=== PATIENT | male | born 1935 | race Caucasian/White ===

== ENCOUNTER → 2019-04-11 | Outpatient (CLI) | payer OTHER ==
--- NOTE | 2019-04-11 10:21 | MR ---
EXAMINATION TYPE: MR lumbar spine wo con DATE OF EXAM: 04/11/2019 COMPARISON: HISTORY: Low back pain TECHNIQUE: Multiplanar, multisequence images of the lumbar spine were acquired. L1-L2: Hypertrophic changes of the facets causes posterior lateral mass effect on the thecal sac. No significant foraminal encroachment. Broad-based posterior disc bulge causes minimal anterior mass eff ect on the thecal sac. L2-L3: Hypertrophic change at the facets with ligamentum flavum hypertrophy causes some posterior lat eral mass effect on the thecal sac, there is a trefoil appearance. Moderate central stenosis is prese nt. Circumferential extension endplate disc complex results in bilateral foraminal encroachment. L3-L4: Spinal stenosis is present which is moderate to severe, there is hypertrophy of the ligamentum flavum causing posterior lateral mass effect on the thecal sac. Circumferential disc bulge causes mi ld anterior mass effect on the thecal sac. Circumferential extension endplate disc complex causes danni ateral foraminal encroachment. L4-L5: Small posterior broad-based disc bulge causes slight anterior mass effect on the thecal sac. T here is some mild bilateral foraminal encroachment. No significant central stenosis. Facet arthropath y changes present. L5-S1: Some neural foraminal encroachment is present due to the listhesis, no evident spinal stenosis or disc herniation. Lumbar segments are intact. No paraspinal masses are identified. Conus medullaris has a normal appe arance. There is an anterolisthesis grade 1 L5-S1. Loss of disc height and signal is present, patient is status post posterior fusion L4-5 S1, susceptibility artifact is present due to the patient's terry dware. There are cystic changes to the bilateral kidneys, kidney on the right and left appears somewh at atrophic. Left kidney is ptotic and noted low within the pelvis. IMPRESSION: Degenerative disc disease, postop changes, facet arthropathy, multilevel spinal stenosis.
== END | disposition home or self-care (01) ==
LOC: RADMRIMAIN 09:03
PROVIDERS: ATTEND Physician Assistant Medical
DX: M48.061 Spinal stenosis, lumbar region without neurogenic claudication (principal); M51.36 Other intervertebral disc degeneration, lumbar region; Z98.890 Other specified postprocedural states
CPT/HCPCS: 72148

== ENCOUNTER → 2021-04-02 | Outpatient (CLI) | payer OTHER ==
--- NOTE | 2021-04-02 14:30 | MR ---
EXAMINATION TYPE: MR lumbar spine wo con DATE OF EXAM: 04/02/2021 COMPARISON: MRI lumbar spine April 11, 2019 HISTORY: Low back pain since 1960, surgery 1960. TECHNIQUE: Multiplanar, multisequence imaging of the lumbar spine is performed without IV contrast. FINDINGS: Sagittal images of the lumbar spine show vertebral body heights to remain stable and satisf actory. Stable grade 1 anterolisthesis L5 on S1. Artifact from posterior fusion hardware L4-S1 levels bilaterally is redemonstrated. Advanced disc space narrowing L5-S1 level again seen. Multilevel disc desiccation superior to this redemonstrated with preservation of disc heights. The conus medullaris remains normal in position and signal ending T12-L1 disc space level. The bone marrow signal intens ity is within normal limits. Axial images show mild to moderate facet arthropathy upper lumbar levels but the spinal canal is pres erved. Axial images at L2-L3 level shows moderate facet arthropathy and ligament flavum hypertrophy effacing posterior lateral thecal sac. Patent bilateral neural foramina. No significant change from prior. Axial images at the L3-L4 level show moderate to advanced facet degenerative changes and ligament fla vum hypertrophy effacing posterior lateral thecal sac. There is moderate broad disc bulge mildly effa cing anterior thecal sac. Most prominent spinal canal effacement or stenosis seen at this level image 18 not significantly changed from prior. Moderate axial joint space loss redemonstrated. Axial images at the L4-L5 level show artifact from posterior surgical change. Spinal canal grossly pr eserved. Patent bilateral neural foramina. Axial images at the L5-S1 levels artifact from posterior surgical change. Increased epidural fat. Spi nal canal preserved. Patent bilateral neural foramina remain present. Inferior posterior paraspinal muscle atrophy is redemonstrated. There is suspected lower abdominal or upper pelvic field kidney transplant with cortical thinning and thin-walled cysts more prominent fro m prior study. Reference axial image 5 IMPRESSION: Postsurgical changes L4-S1 level redemonstrated. Stable L5-S1 spondylolisthesis. Moderate -to-severe degenerative changes L3-L4 level with significant spinal canal effacement or stenosis agai n seen. No significant progression from 2019 study noted.
== END | disposition home or self-care (01) ==
LOC: RADMRIMAIN 13:09
PROVIDERS: ATTEND Physician Assistant Medical
DX: M43.17 Spondylolisthesis, lumbosacral region (principal); M47.816 Spondylosis without myelopathy or radiculopathy, lumbar region; M51.26 Other intervertebral disc displacement, lumbar region
CPT/HCPCS: 72148